=== PATIENT | female | born 1965 | race Native Hawaiian/Other Pacific Islander ===

== ENCOUNTER 2016-07-14 14:18 | Outpatient (CLI) | payer BC | END 2016-07-14 20:01 | disposition home or self-care (01) | LOC: MAMMO 14:18 | DX: Z12.31 Encounter for screening mammogram for malignant neoplasm of breast (principal) | CPT/HCPCS: G0202-TC ==

== ENCOUNTER 2016-07-15 08:14 | Day surgery (SDC) | payer BC | END 2016-07-15 10:35 | disposition home or self-care (01) | LOC: OR 08:14 | PROC: 0DBP8ZZ Excision of Rectum, Via Natural or Artificial Opening Endoscopic (ICD-10-PCS; principal; 2016-07-15) | DX: K62.89 Other specified diseases of anus and rectum (principal); K64.8 Other hemorrhoids; K64.4 Residual hemorrhoidal skin tags; Z12.11 Encounter for screening for malignant neoplasm of colon | CPT/HCPCS: J2704 ==

== ENCOUNTER 2016-07-29 09:50 | Outpatient (CLI) | payer BC | END 2016-07-29 19:07 | disposition home or self-care (01) | LOC: RAD 09:50 | DX: M79.644 Pain in right finger(s) (principal); M79.645 Pain in left finger(s) ==

== ENCOUNTER 2016-08-06 13:51 | Outpatient (CLI) | payer BC | END 2016-08-06 19:35 | disposition home or self-care (01) | LOC: MAMMO 13:51 | DX: N64.89 Other specified disorders of breast (principal) | CPT/HCPCS: G0206-TC ==

== ENCOUNTER 2020-08-07 09:44 | Outpatient (CLI) | payer BC | END 2020-08-07 23:59 | disposition home or self-care (01) | LOC: RAD 09:44 | PROVIDERS: ATTEND Nurse Practitioner Family | DX: M79.18 Myalgia, other site (principal) ==

== ENCOUNTER → 2020-10-24 | Outpatient (CLI) | payer BC | LOC: RAD 11:38 | PROVIDERS: ATTEND Nurse Practitioner Family | DX: R05 Cough (principal) ==

== ENCOUNTER 2022-03-18 09:59 | Outpatient (CLI) | payer BC | END 2022-03-18 23:16 | disposition home or self-care (01) | LOC: CT 09:59 | PROVIDERS: ATTEND Registered Nurse | DX: R42 Dizziness and giddiness (principal); S09.8XXA Other specified injuries of head, initial encounter; Y92.89 Other specified places as the place of occurrence of the external cause ==